=== PATIENT | male | born 1960 | race African-American/Black ===

== ENCOUNTER 2017-07-04 03:36 | Emergency (ER) | payer SELFPAY ==
[~2017-07-04] VITALS: Ht 165.1 cm; Wt 84.0 kg
[2017-07-04] MEDS ORDERED: LIDOCAINE HCL 2%/EPINEPHRINE/PF 10 ML VIAL INFIL ONE (06:30)
[2017-07-04] MEDS ORDERED: TRAMADOL 50MG TABLET PO ONE (06:30)
[2017-07-04] MEDS ORDERED: LIDOCAINE HCL/EPINEPHRINE 1%-EPI 1:100,000 20 ML VIAL INFIL ONE (06:45)
[2017-07-04] MEDS ORDERED: LIDOCAINE 1%/EPI 1:200,000 10 ML VIAL IJ ONE (06:45)
[2017-07-04 08:23] VITALS: BP 151/100
== END 2017-07-04 09:19 | disposition home or self-care (01) ==
LOC: ER 03:36
DX: D17.22 Benign lipomatous neoplasm of skin and subcutaneous tissue of left arm (principal)
CPT/HCPCS: 73070; 99284; Z7610; J3490

== ENCOUNTER 2019-01-31 19:32 | Emergency (ER) | payer SELFPAY ==
[~2019-01-31] VITALS: Ht 165.1 cm; Wt 86.0 kg
[2019-01-31] MEDS ORDERED: IBUPROFEN 600MG TABLET PO ONE (22:45)
[2019-01-31] MEDS ORDERED: TETANUS, DIPHTHERIA, PERTUSSIS VAC/PF 0.5ML (>7YR OLD) IM ONE (22:45)
[2019-01-31] MEDS ORDERED: BACITRACIN ZINC OINT UDPKT TOP ONE (22:45)
[2019-01-31] MEDS ORDERED: LIDOCAINE HCL/PF 1% 10 MG/ML 5ML VIAL IJ ONE ×2 (22:45→23:30)
[2019-01-31] MEDS ORDERED: CLONIDINE 0.1MG TABLET PO ONE (23:15)
[2019-02-01 00:42] VITALS: BP 184/93
== END 2019-02-01 00:45 | disposition home or self-care (01) ==
LOC: ER 22:38
DX: S61.210A Laceration without foreign body of right index finger without damage to nail, initial encounter (principal); R03.0 Elevated blood-pressure reading, without diagnosis of hypertension; Z98.890 Other specified postprocedural states; W26.8XXA Contact with other sharp object(s), not elsewhere classified, initial encounter; Y93.89 Activity, other specified; Y92.018 Other place in single-family (private) house as the place of occurrence of the external cause
CPT/HCPCS: 12001; 90471; 90715; 99283; J3490; Z7610

== ENCOUNTER 2019-02-15 04:20 | Emergency (ER) | payer SELFPAY ==
[~2019-02-15] VITALS: Ht 172.7 cm; Wt 87.3 kg
[2019-02-15 04:28] VITALS: BP 195/101
[2019-02-15] MEDS ORDERED: IBUPROFEN 400MG TABLET PO ONE (05:30)
== END 2019-02-15 05:38 | disposition home or self-care (01) ==
LOC: ER 04:20
DX: S61.211D Laceration without foreign body of left index finger without damage to nail, subsequent encounter (principal); M10.9 Gout, unspecified; M79.672 Pain in left foot; Z98.890 Other specified postprocedural states; X58.XXXD Exposure to other specified factors, subsequent encounter
CPT/HCPCS: 99283

== ENCOUNTER 2019-10-05 05:50 | Emergency (ER) | payer MEDICAID ==
[~2019-10-05] VITALS: Ht 165.1 cm; Wt 82.0 kg
[2019-10-05] MEDS ORDERED: NAPROXEN 250MG TABLET PO ONE (06:45)
[2019-10-05] MEDS ORDERED: AMLODIPINE 2.5MG TABLET PO ONE (06:45)
[2019-10-05] MEDS ORDERED: CLONIDINE 0.2MG TABLET PO ONE (06:45)
[2019-10-05] MEDS ORDERED: ACETAMINOPHEN WITH CODEINE 300/30MG TABLET PO ONE (06:45)
[2019-10-05 07:15] VITALS: BP 204/124
== END 2019-10-05 08:54 | disposition home or self-care (01) ==
LOC: ER 05:50
DX: M10.9 Gout, unspecified (principal); M79.675 Pain in left toe(s); I10 Essential (primary) hypertension
CPT/HCPCS: 99284